=== PATIENT | female | born 1985 | race Caucasian/White ===

== ENCOUNTER 2017-04-06 11:32 | Emergency (ER) | payer OTHER ==
[~2017-04-06] VITALS: Ht 154.9 cm; Wt 70.5 kg
[2017-04-06] MEDS ORDERED: NORCO, ANEXSIA 5/325MG TABLET (HYDROcodone/ACETAMINOPHEN) PO ONE (12:30)
--- NOTE | 2017-04-06 12:47 | REP ---
Clinical: Trauma. Technique: Frontal view of the chest with multiple views of the right hemithorax. Findings: Frontal view of the chest demonstrates no acute cardiopulmonary process. Multiple views of the right hemithorax demonstrates no obvious acute rib fracture or pathology. Impression: Normal right rib series Signed by Itz Goldstein MD 04/06/2017 12:39 P
[2017-04-06 13:08] VITALS: BP 139/79
== END 2017-04-06 13:26 | disposition home or self-care (01) ==
LOC: M ED 11:32
DX: S00.91XA Abrasion of unspecified part of head, initial encounter (principal); S20.211A Contusion of right front wall of thorax, initial encounter; Y04.8XXA Assault by other bodily force, initial encounter; Y92.410 Unspecified street and highway as the place of occurrence of the external cause; Y93.89 Activity, other specified; Y99.8 Other external cause status

== ENCOUNTER → 2019-06-12 | Outpatient (REF) | payer OTHER, MEDICAID ==
[2019-06-12 18:50] LABS: HCG, SERUM QUALITATIVE POSITIVE (NEGATIVE)
[2019-06-12 19:26] LABS: HCG, SERUM QUANTITATIVE 19815 MIU/ML
== END ==
LOC: M LAB REF 11:14
PROVIDERS: ATTEND Nurse Practitioner Family
DX: Z34.82 Encounter for supervision of other normal pregnancy, second trimester (principal)

== ENCOUNTER → 2019-08-10 | Outpatient (CLI) | payer OTHER ==
[2019-08-10 13:59] LABS: BASO % 0.5 % (0.0-1.0); EOS # 0.2 10^3/uL (0.0-0.5); EOS % 2.4 % (0.0-3.0); HEMATOCRIT 38.6 % (36.0-47.0); HEMOGLOBIN 12.7 g/dl (12.0-15.5); LYMPH # 1.5 10^3/uL (1.5-5.0); MEAN CORPUSCULAR HEMOGLOBIN 31.1 pg (27.0-33.0); MEAN CORPUSCULAR HGB CONC 32.9 g/dl (32.0-36.5); MEAN CORPUSCULAR VOLUME 94.4 fl (80.0-96.0); MONO # 0.8 10^3/uL (0.0-0.8); MONO % 9.9 % (0.0-5.0); NEUTROPHILS # 5.4 10^3/uL (1.5-8.5); NEUTROPHILS % 67.6 % (36.0-66.0); PLATELET COUNT, AUTOMATED 168 10^3/uL (150-450); RED BLOOD COUNT 4.09 10^6/uL (4.00-5.40)
[2019-08-10 14:49] LABS: HIV 1&2 SCREEN CENTAUR NEGATIVE (NEGATIVE); RUBELLA IgG QUALITATIVE IMMUNE (IMMUNE)
== END ==
LOC: M SMT 11:15
PROVIDERS: ATTEND Advanced Practice Midwife
DX: Z34.81 Encounter for supervision of other normal pregnancy, first trimester (principal); Z3A.10 10 weeks gestation of pregnancy

== ENCOUNTER → 2019-09-07 | Outpatient (CLI) | payer OTHER ==
--- NOTE | 2019-09-07 13:28 | REP ---
Clinical: Anatomical evaluation. Comparison: None . Findings: Examination demonstrates a single live intrauterine in cephalic presentation. motion is identified by technologist. Placenta is noted posterior and grade zero without evidence for placenta previa or abruption. Amniotic fluid volume is normal. Cervix measures 3.4 cm in length and appears closed. No evidence for nuchal cord. Gestational age by current measurements 18 weeks 3 days with MARIO 02/05/2020 . FHR equals 144 beats per minute. BPD 4.1 cm 18 weeks 3 days HC 15.5 cm 18 weeks 3 days AC 13.0 cm 18 weeks 4 days FL 2.7 cm 18 weeks 1 day HL 2.7 cm 18 weeks 3 days HC/AC ratio 1.20 Estimated weight 235 grams ( 44th percentile). Anatomical assessment demonstrates normal structures including cranium, choroid plexus, cavum, cerebellum/posterior fossa, facial features, lungs, diaphragm, stomach, cord insertion/three-vessel cord, kidneys/bladder, spine, and extremities. Impression: Single live intrauterine in cephalic presentation demonstrating appropriate estimated weight to growth. Limited evaluation of the heart and ventricular outflow tracts noted. Remainder of the anatomical assessment is complete and normal. Electronically Signed by Itz Goldstein MD 09/07/2019 01:19 P
== END ==
LOC: M RAD 11:15
PROVIDERS: ATTEND Advanced Practice Midwife
DX: Z34.82 Encounter for supervision of other normal pregnancy, second trimester (principal); Z36.89 Encounter for other specified antenatal screening; Z3A.18 18 weeks gestation of pregnancy

== ENCOUNTER → 2019-09-13 | Outpatient (REF) | payer OTHER ==
[2019-09-13 15:46] LABS: CHLAMYDIA DNA AMPLIFICATION NEGATIVE (NEGATIVE); GC DNA AMPLIFICATION NEGATIVE (NEGATIVE)
== END ==
LOC: M SFHCWAGY 13:38
PROVIDERS: ATTEND Advanced Practice Midwife
DX: Z3A.19 19 weeks gestation of pregnancy (principal)

== ENCOUNTER → 2019-09-26 | Outpatient (CLI) | payer OTHER | LOC: M RAD 16:44 | PROVIDERS: ATTEND Advanced Practice Midwife | DX: Z3A.19 19 weeks gestation of pregnancy (principal) ==

== ENCOUNTER → 2019-10-12 | Outpatient (CLI) | payer OTHER | LOC: M RAD 11:00 | PROVIDERS: ATTEND Advanced Practice Midwife | DX: Z36.3 Encounter for antenatal screening for malformations (principal); Z3A.19 19 weeks gestation of pregnancy ==

== ENCOUNTER → 2019-11-15 | Outpatient (REF) | payer OTHER ==
[2019-11-15 12:47] LABS: HEMATOCRIT 35.3 % (36.0-47.0); HEMOGLOBIN 11.6 g/dl (12.0-15.5); MEAN CORPUSCULAR HGB CONC 32.9 g/dl (32.0-36.5); MEAN CORPUSCULAR VOLUME 97.2 fl (80.0-96.0); PLATELET COUNT, AUTOMATED 147 10^3/uL (150-450); RED BLOOD COUNT 3.63 10^6/uL (4.00-5.40); WHITE BLOOD COUNT 9.9 10^3/uL (4.0-10.0)
== END ==
LOC: M PLALAB 10:25
PROVIDERS: ATTEND Advanced Practice Midwife
DX: Z34.92 Encounter for supervision of normal pregnancy, unspecified, second trimester (principal)

== ENCOUNTER 2019-12-23 18:51 | Outpatient (CLI) | payer OTHER ==
[~2019-12-23] VITALS: Ht 154.9 cm; Wt 66.4 kg
[2019-12-23 19:07] VITALS: BP 111/77
[2019-12-23] MEDS ORDERED: PRENTAB9 PO (19:49)
--- NOTE | 2019-12-23 20:45 | IPNPDOC ---
Text Note Date of Service The patient was seen on 12/23/19. NOTE Subjective: Patient is a 34-year-old female who is a at 33.5 weeks gestation with an MARIO of 02/05/20 based off of her first trimester ultrasound. She initiated care in her first trimester with [facility]. Her has been complicated by a history of delivery at 36 weeks. She presents with vague symptoms of some occasional abdominal pains that are intermittent in no exact spot but reports it happens on random spots on her abdomen. She also reports upper mid back pain. She denies any contraction, leaking of fluid, or vaginal bleeding. She reports active movement. She denies any dysuria or frequency. She states that she knows she is not in labor. history: 01/2010 36 weeks of a living male weighting 4 lbs 11 oz with PPROM. Medical history: no current problems Surgical history: cyst removed from wrist Family history: noncontributory Social: Patient reports she is a former smoker. She denies any use of drugs or alcohol in her . She denies any history of STDs. Objective: VS and labs: see below. FHR 150, moderate variability, positive accelerations, no decelerations. Contractions: occasional. A+O x3. Respiratory rate is regular with no use of accessory muscles. Abdomen: gravid, soft and non- tender to palpation. Negative CVA tenderness. Perineum: no discharge noticed at introitus. SVE: FT with internal os that is closed and thick, anterior and scant show with exam. [place] show noted on glove after exam. Assessment: IUP at 33 weeks gestation; Category I FHR tracing, history of delivery, occasional abdominal and upper mid back pain, AMA Plan: UA and c&s culture obtained. Patient discharged to home with labor precautions. Instructed to call with any changes. Reviewed access to care, kick counts, labor signs, and danger signs to report. VS,Fishbone, I+O VS, Fishbone, I+O Vital Signs Date Time Temp Pulse Resp B/P (MAP) Pulse Ox O2 Delivery O2 Flow Rate FiO2 12/23/19 19:07 97.6 76 18 111/77 (88) 96 Item Value Date Time Urine Color YELLOW 12/23/192036 Urine Appearance CLOUDY H 12/23/192036 Urine pH 5.0 UNITS 12/23/192036 Urine Specific [place] 1.019 12/23/192036 Urine Protein NEGATIVE mg/dL 12/23/192036 Urine Glucose (Auto)(UA) NEGATIVE mg/dL 12/23/192036 Urine Ketones (Auto) NEGATIVE mg/dL 12/23/192036 Urine Blood 3+ H 12/23/192036 Urine Nitrite NEGATIVE 12/23/192036 Urine Bilirubin NEGATIVE 12/23/192036 Urine Urobilinogen 0.2 mg/dL 12/23/192036 Urine Leukocyte Esterase (Auto) 1+ H 12/23/192036 Urine WBC (Auto) 24 /HPF H 12/23/192036 Urine RBC (Auto) TNTC /HPF H 12/23/192036 Urine Hyaline Casts (Auto) 0 /LPF 12/23/192036 Urine Bacteria (Auto) 1+ H 12/23/192036 Urine Squamous Epithelial Cells 18 /HPF 12/23/192036 Urine Mucus (Auto) SMALL 12/23/192036 LETTY YIP CNM Dec 23, 2019 20:45
[2019-12-23 20:50] LABS: APPEARANCE, URINE CLOUDY (CLEAR); BACTERIA, URINE AUTO 1+ (NEGATIVE); BILIRUBIN, URINE AUTO NEGATIVE (NEGATIVE); BLOOD, URINE BLOOD 3+ (NEGATIVE); COLOR, URINE YELLOW (YELLOW); GLUCOSE, URINE (UA) AUTO NEGATIVE (NEGATIVE); KETONE, URINE AUTO NEGATIVE (NEGATIVE); LEUKOCYTE ESTERASE, URINE AUTO 1+ (NEGATIVE); MUCUS, URINE SMALL (NEGATIVE); NITRITE, URINE AUTO NEGATIVE (NEGATIVE); PROTEIN, URINE AUTO NEGATIVE (NEGATIVE); RBC, URINE AUTO TNTC /HPF (0-3); SPECIFIC GRAVITY URINE AUTO 1.019 (1.002-1.035); SQUAMOUS EPITHELIAL CELL UR AU 18 /HPF (0-6); UROBILINOGEN, URINE AUTO 0.2 mg/dL (0.0-2.0); WBC, URINE AUTO 24 /HPF (0-3)
[2019-12-23 21:14] VITALS: BP 105/58
== END 2019-12-23 21:30 | disposition home or self-care (01) ==
LOC: M LDO 18:51
PROVIDERS: ATTEND Advanced Practice Midwife
DX: O26.893 Other specified pregnancy related conditions, third trimester (principal); M54.5 Low back pain; Z3A.33 33 weeks gestation of pregnancy

== ENCOUNTER → 2020-01-09 | Outpatient (REF) | payer OTHER ==
[~2020-01-09] MED LIST: PRENTAB9 PO
== END ==
LOC: M SFHCWAGY 13:26
PROVIDERS: ATTEND Advanced Practice Midwife
DX: O09.219 Supervision of pregnancy with history of pre-term labor, unspecified trimester (principal); Z3A.00 Weeks of gestation of pregnancy not specified

== ENCOUNTER 2020-02-02 13:38 | Inpatient (IN) | payer OTHER ==
[2020-02-02] VITALS (20 sets, daily range): BP systolic 101–138; BP diastolic 55–84
[~2020-02-02] VITALS: Ht 180.3 cm; Wt 71.4 kg
[2020-02-02] MEDS ORDERED: OXYTOCIN DRIP 30 UNITS in IV 1 EA IV SCH (14:30)
[2020-02-02] MEDS: LR 1,000 ML IV SCH ×2 (14:51→17:13)
--- NOTE | 2020-02-02 14:53 | HPEPDOC ---
Obstetrical History & Physical General Date of Admission Feb 02, 2020 at 13:38 History of Present Illness 34-year-old 2, para 1 presents for induction of labor secondary to advan shaun maternal age. EDC is 02/05/2020 by first trimester ultrasound. She is had an uncomplicated course. She initiated care first trimesters been appropriate throughout. Chief Complaint: Induction of labor Information Provided By: Patient Age: 34 : 2 Pre-term: 1 Livin Care Care: Good Care Dating Final EDC: February 05, 2020 Final EDC by: 1st trimester (US) 1st Trimester Date: Jul 13, 2019 Past Medical History Past Obstetrical History : Past Obstetrical History: Multigravida Type of Delivery: Spontaneous Vaginal Del. Sex of : Male Past Medical History Surgical History: Denies/None Social History Marital Status: Single Psychosocial History: No pertinent psych hx * Smoker: former Smoker Alcohol: Denies Allergies Coded Allergies: No Known Allergies (Verified , 04/06/17) Medications Scheduled No.137/Iron/Folic Acd ( Vitamin Tablet) 1 Each Tablet, 1 TAB PO DAILY Physical Examination Physical Examination GENERAL: Alert and oriented times three. BREAST: . ABDOMEN: Gravid and non-tender to touch. FETUS: Is vertex (VTX) by sterile vaginal examination (SVE), fetus is vertex (VTX) by Jan. HEART RATE: Regular rate and rhythm. LUNGS: Clear to auscultation (CTA). Laboratory Data 24H LABS Laboratory Tests 2 02/02/20 13:46: Serology Scanned Report Hepatitis B Testing Pertinent Laboratoy Data Blood Type: O+ RBC Antibody Screen: Negative HIV: Negative Hepatitis B: Negative Hepatitis C: Negative Rapid Plasma Reagin: Nonreactive Rubella: Immune Group B Streptococcus: Negative Vaginal Examination Dilation: 2cm Effacement: 80% Station: -3 Cervical Consistency: Soft Cervical Position: Middle Presentation: Cephalic presentation Assessment Variability: Moderate Accelerations: Positive Tocometer Contractions: No Assessment/Plan Assessment 34-year-old 2, para 1 at 39 weeks 1 days estimated gestational age , here for induction of labor secondary to advanced maternal age. Reassuring status Plan Admit and orient. Mica Patcher and consent. Diet: Regular. Group B Streptococcus (GBS) negative. Labs and intravenous (IV) per unit protocol. Counseled on Pitocin and induction of labor (IOL). Anticipate normal spontaneous delivery (). C-S as appropriate. Labor and Delivery Counseling Patient's been thoroughly counseled regards, induction labor. Discussed medications procedures performed labor and delivery. She is been verbally consented for emergency surgery, blood products anesthesia and delivery, which is been answered. She desires to proceed with induction of labor. We'll initiate her induction labor with LENI Tesfaye MD. Feb 02, 2020 14:53
[2020-02-02 15:09] LABS: HEMOGLOBIN 11.7 g/dl (12.0-15.5); MEAN CORPUSCULAR HEMOGLOBIN 31.6 pg (27.0-33.0); MEAN CORPUSCULAR HGB CONC 33.4 g/dl (32.0-36.5); MEAN CORPUSCULAR VOLUME 94.6 fl (80.0-96.0); PLATELET COUNT, AUTOMATED 157 10^3/uL (150-450); WHITE BLOOD COUNT 9.3 10^3/uL (4.0-10.0)
[2020-02-02] MEDS ORDERED: FENTANYL 2MCG/ML ROPIVACAINE 0.2% IN 0.9% NACL 100ML IVBAG As Ordered ONE (21:31)
[2020-02-02] MEDS ORDERED: ePHEDrine SULFATE 25 MG/5 ML(5MG/ML) SYRINGE IV PRN (21:52)
[2020-02-02] MEDS ORDERED: EPIDURAL COMMENT XX SCH (21:52)
[2020-02-02] MEDS ORDERED: LACTATED RINGER'S 1000 ML IV PRN (21:52)
[2020-02-02] MEDS ORDERED: EPIDURAL/PCA KEYS XX PRN (21:52)
[2020-02-02] MEDS ORDERED: NALOXONE INJ 0.4MG/1ML VIAL (J2310 PER 1MG) IV PRN (21:52)
[2020-02-02] MEDS ORDERED: FENTANYL/ROPIVACAINE/NACL BAG 100 ML EPIDURAL SCH (21:52)
[2020-02-02] MEDS ORDERED: diphenhydrAMINE 50MG/ML VIAL (J1200) IV PRN (21:52)
[2020-02-02] MEDS ORDERED: REFRIGERATOR IV KEYS XX PRN (21:52)
[2020-02-02] MEDS ORDERED: ONDANSETRON 4MG/2ML VIAL IV PRN (21:52)
[2020-02-03] VITALS (8 sets, daily range): BP systolic 115–141; BP diastolic 58–84
[2020-02-03] MEDS ORDERED: ACETAMINOPHEN 500 MG TAB As Ordered ONE (01:39)
[2020-02-03] MEDS ORDERED: UNASYN 3 GM VIAL As Ordered ONE (01:39)
[2020-02-03] MEDS ORDERED: MORPHINE PRES-FREE INJ 10 MG/10 ML VIAL (J2274) As Ordered ONE (01:45)
[2020-02-03] MEDS ORDERED: LIDOCAINE 2% W/EPIN INJ 20ML **PRES FREE As Ordered ONE (01:46)
[2020-02-03] MEDS ORDERED: BICITRA 30ML SOLN UDC As Ordered ONE (01:47)
[2020-02-03] MEDS ORDERED: OXYTOCIN INJ 10 UNITS/ML VIAL (J2590) As Ordered ONE (01:49)
--- NOTE | 2020-02-03 01:51 | IPNPDOC ---
Obstetrical Progress Note Date of Service February 03, 2020 Subjective 34-year-old 2, para 1 was undergoing induction of labor at 39 weeks for advanced maternal age. Has been complete since midnight has been pushing now approximate 2 hours with no descent. heart rate tracing is a category 2 with tachycardia many of minimal variability and repetitive variable decelerations. She is now formally diagnosed with chorioamnionitis with ta chycardia, maternal temperature, decision made to proceed with section. Discussed this with patient. All questions been answered. Will plan to proceed with section with indication of arrest of descent, persistent category 2 tracing maternal exhaustion Objective Vital Signs Date Time Temp Pulse Resp B/P (MAP) Pulse Ox O2 Delivery O2 Flow Rate FiO2 02/02/20 23:07 81 109/63 (78) 02/02/20 22:39 98.4 02/02/20 18:48 18 02/02/20 14:09 97 Assessment Heart Rate Tracing: Category II Assessment and Plan Age: 34 : 2 Livin Anticipate: Section Additional Comments Plan to proceed with primary section for persistent category 2 heart tracing, arrest of descent and maternal exhaustion LENI MICHELLE MD. February 03, 2020 01:51
[2020-02-03] MEDS ORDERED: AMPICILLIN SOD/SULBACTAM SOD 3 GM in D5W MINI-BAG PLUS 100 ML IV ONE (02:00)
[2020-02-03] MEDS ORDERED: BICITRA 30ML SOLN UDC PO ONE (02:00)
[2020-02-03] MEDS ORDERED: ACETAMINOPHEN 325 MG/10.15 ML UDC PO ONE (02:00)
[2020-02-03] MEDS ORDERED: dexameTHASONE 4 MG/ML 1ML VIAL (J1100 PER 1MG) As Ordered ONE (02:18)
[2020-02-03] MEDS ORDERED: ONDANSETRON 4MG/2ML VIAL As Ordered ONE (02:18)
[2020-02-03] MEDS ORDERED: NALBUPHINE HCL 10 MG/ML AMP (J2300) IV PRN (02:21)
[2020-02-03] MEDS ORDERED: ONDANSETRON 4MG/2ML VIAL IV PRN ×3 (02:21→03:30)
[2020-02-03] MEDS ORDERED: diphenhydrAMINE 50MG/ML VIAL (J1200) IV PRN (02:21)
[2020-02-03] MEDS ORDERED: METOCLOPRAMIDE INJ 10MG/2ML VIAL (J2765 PER 1) IV PRN (02:21)
[2020-02-03] MEDS ORDERED: NALOXONE INJ 0.4MG/1ML VIAL (J2310 PER 1MG) IV PRN ×2 (02:21)
[2020-02-03] MEDS ORDERED: MIDAZOLAM INJ 2MG/2ML VIAL (J2250 PER 1MG) As Ordered ONE (02:23)
[2020-02-03] MEDS ORDERED: propofoL 200 MG/20 ML VIAL As Ordered ONE (02:32)
[2020-02-03 02:47] LABS: CORD GAS ABE V -6.2; CORD GAS HCO3 V 21.7 MEQ/L; CORD GAS O2 SAT V 42.8 %; CORD GAS PCO2 V 51.5 mmHg; CORD GAS PH V 7.243 UNITS; CORD GAS PO2 V 21.4 mmHg; CORD GAS SBC V 18.1 MEQ/L; CORD GAS TCO2 V 23.3 MEQ/L
[2020-02-03 02:49] LABS: CORD GAS HCO3 A 21.9 MEQ/L; CORD GAS O2 SAT A 51.2 %; CORD GAS PH A 7.203 UNITS; CORD GAS PO2 A 26.3 mmHg; CORD GAS SBC A 17.7 MEQ/L; CORD GAS TCO2 A 23.7 MEQ/L
[2020-02-03] MEDS ORDERED: OXYTOCIN DRIP 30 UNITS in IV 1 EA IV SCH (03:09)
[2020-02-03] MEDS ORDERED: LR 1,000 ML IV SCH (03:09)
[2020-02-03] MEDS ORDERED: PERCOCET 5MG/325MG TAB PO PRN ×2 (03:15)
[2020-02-03] MEDS ORDERED: RHOGAM 300 MCG (1500 IU) INJ (J2790) IM SCH (03:15)
[2020-02-03] MEDS ORDERED: MOM 30ML SUSPENSION UDC PO PRN (03:15)
[2020-02-03] MEDS ORDERED: MEASLES,MUMPS,RUBELLA VACCINE INJ (MMR-II) (90707) SC SCH (03:15)
--- NOTE | 2020-02-03 03:18 | ROOPDOC ---
[facility] Report Of Operation Report of Operation DATE OF PROCEDURE: 02/03/20 SURGEON: Dian Villa M.D. BACON SKINNER: Dr. Pavel Gonzales ANESTHESIA: Epidural PREOPERATIVE DIAGNOSIS: 1. Persistent category 2 tracing 2. Arrest of descent 3. Chorioamnionitis POSTOPERATIVE DIAGNOSIS: 1. Persistent category 2 tracing 2. Arrest of descent 3. Chorioamnionitis ESTIMATED BLOOD LOSS: 600ml URINE OUTPUT: 50 mL INTRAVENOUS FLUIDS:, 1200 mL PREOPERATIVE ANTIBIOTICS: 3 g of Unasyn OPERATIVE FINDINGS: Liveborn female infant, Apgars 7 and 9. Weight was 5 lbs. 6 oz. 40. SPECIMENS: Placenta. Cord gases DESCRIPTION OF PROCEDURE: After informed consent was obtained and written consent was reviewed. The patient was brought to the operating room. She was then placed in the supine position with a left lateral tilt. Waldrop catheter was previously placed. Patient was then prepped and draped in the normal sterile fashion. A timeout operating room was performed identifying the patient, procedure be performed as well as drug allergies. Anesthesia was tested and deemed to be adequate. Pfannenstiel skin incision was made and this was carried down to the underlying rectus fascia. The fascia was then scored and this incision was extended bilaterally. The fascia was then dissected off the underlying rectus muscle superiorly and inferiorly. The rectus muscles were then in the midline. The peritoneum is then entered. Vesicouterine peritoneum was then tented and excised and a bladder flap was created. Mobius retractor was then placed. Next, a curvilinear incision was then made in the lower uterine segment. Amniotomy was performed, productive, clear fluid. The head was brought to the level of the incision atraumatically and delivered along the shoulders and corpus. The cord was clamped 2. The infant was brought over to the warmer with a good cry. Placenta was drained and delivered grossly intact. The uterus was cleared of all clots and debris and the uterine incision was then closed in 2 layers using 0 Vicryl, first in a running locking fashion followed by second layer for imbrication. Several [id number] stitches were placed for hemostasis.The abdomen suctioned. Surgical sites reinspected and noted be hemostatic. The retractor was then removed. The anterior peritoneum was then reapproximated with 3-0 Vicryl. The rectus muscles were reapproximated 3-0 Vicryl. The fascia was then closed using 0 Vicryl in a running nonlocking fashion. The subcutaneous tissues was then irrigated and suctioned. Subcutaneous tissue was reapproximated using 3-0 Vicryl. Several subdermal stitch is placed using 3-0 Vicryl and the skin was closed with 4-0 Monocryl. This incision was then cleaned and dried and was dressed. The patient was then taken to recovery in stable condition. All counts were correct. My mechanic assistant. played in an essential roll during the opera tion. They assisted with tissue identification retraction, delivery of the , as well as wound closure. DIAN VILLA MD. February 03, 2020 03:18
[2020-02-03] MEDS ORDERED: fentaNYL 100 MCG/2 ML INJECTION (J3010) IV PRN (03:30)
[2020-02-03] MEDS ORDERED: KETOROLAC 30 MG/ML 1ML VIAL IV PRN (03:30)
[2020-02-03] MEDS ORDERED: OXYTOCIN 30 UNITS IN 0.9% NaCl 500ML IV BAG (J2590) As Ordered ONE (03:47)
[2020-02-03] MEDS ORDERED: KETOROLAC 30 MG/ML 1ML VIAL As Ordered ONE (03:47)
[2020-02-03] MEDS ORDERED: ACETAMINOPHEN 500 MG TAB PO ONE (05:30)
[2020-02-03] MEDS: PRENATAL VITAMINS CHEWABLE TABLET PO SCH (07:47)
[2020-02-03] MEDS: DOCUSATE SODIUM 100 MG CAP PO SCH ×3 (07:47→20:59)
[2020-02-03] MEDS: AMPICILLIN SOD/SULBACTAM SOD 3 GM in D5W MINI-BAG PLUS 100 ML IV SCH ×3 (07:47→20:47)
[2020-02-03] MEDS ORDERED: IBUP80TA PO (08:54)
[2020-02-03] MEDS ORDERED: PERCOCET PO (08:54)
[2020-02-03] MEDS: KETOROLAC 30 MG/ML 1ML VIAL IV SCH ×3 (10:08→22:13)
[2020-02-04] VITALS (14 sets, daily range): BP systolic 104–155; BP diastolic 63–86
[2020-02-04] MEDS: AMPICILLIN SOD/SULBACTAM SOD 3 GM in D5W MINI-BAG PLUS 100 ML IV SCH ×4 (03:00→19:45)
[2020-02-04] MEDS ORDERED: IBUPROFEN 800 MG TAB PO SCH (06:00)
[2020-02-04] MEDS: IBUPROFEN 100 MG/5 ML SUSP UDC DYE FREE PO SCH ×3 (06:16→21:34)
--- NOTE | 2020-02-04 07:12 | IPNPDOC ---
Text Note Date of Service The patient was seen on 02/04/20. NOTE PO #1 Reports adequate pain management. Jo placed last night due to inability to void. Tolerating food, fluids. Passing flatus. VSS, afebrile and normotensive Fundus firm Dressing intact with scant old drainage. Lochia rubra scant without odor PO #1 Remove jo this am. Attempt to void starting 2 hrs then hourly. Consider D/C in am VS,Fishbone, I+O VS, Fishbone, I+O Vital Signs Date Time Temp Pulse Resp B/P (MAP) Pulse Ox O2 Delivery O2 Flow Rate FiO2 02/04/20 06:00 98.1 72 18 134/71 (92) 98 Room Air I&O- Last 24 Hours up to 6 AM 02/04/20 06:00 Intake Total 1470 ml Output Total 2750 ml Balance -1280 ml Galilea Beard CNM February 04, 2020 07:12
[2020-02-04 07:16] LABS: HEMATOCRIT 22.8 % (36.0-47.0); MEAN CORPUSCULAR HEMOGLOBIN 31.9 pg (27.0-33.0); MEAN CORPUSCULAR HGB CONC 33.3 g/dl (32.0-36.5); MEAN CORPUSCULAR VOLUME 95.8 fl (80.0-96.0); PLATELET COUNT, AUTOMATED 106 10^3/uL (150-450); RED BLOOD COUNT 2.38 10^6/uL (4.00-5.40); WHITE BLOOD COUNT 10.7 10^3/uL (4.0-10.0)
[2020-02-04 07:18] LABS: HEMOGLOBIN 7.6 g/dl (12.0-15.5)
[2020-02-04] MEDS: DOCUSATE SODIUM 100 MG CAP PO SCH ×2 (07:45→21:39)
[2020-02-04] MEDS: PRENATAL VITAMINS CHEWABLE TABLET PO SCH (07:45)
[2020-02-04] MEDS ORDERED: PILL CUTTER 1 EACH XX PRN (16:30)
[2020-02-05] MEDS: AMPICILLIN SOD/SULBACTAM SOD 3 GM in D5W MINI-BAG PLUS 100 ML IV SCH ×2 (01:28→08:00)
[2020-02-05 02:00] VITALS: BP 115/69
[2020-02-05] MEDS: IBUPROFEN 100 MG/5 ML SUSP UDC DYE FREE PO SCH ×3 (06:24→21:41)
[2020-02-05 06:37] VITALS: BP 121/82
[2020-02-05 06:48] LABS: HEMATOCRIT 29.5 % (36.0-47.0); MEAN CORPUSCULAR HEMOGLOBIN 29.6 pg (27.0-33.0); MEAN CORPUSCULAR HGB CONC 32.5 g/dl (32.0-36.5); PLATELET COUNT, AUTOMATED 122 10^3/uL (150-450); RED BLOOD COUNT 3.24 10^6/uL (4.00-5.40); WHITE BLOOD COUNT 10.6 10^3/uL (4.0-10.0)
[2020-02-05 06:54] LABS: HEMOGLOBIN 9.6 g/dl (12.0-15.5)
[2020-02-05] MEDS: PRENATAL VITAMINS CHEWABLE TABLET PO SCH (09:00)
[2020-02-05] MEDS: DOCUSATE SODIUM 100 MG CAP PO SCH ×2 (09:00→21:00)
[2020-02-05 18:10] VITALS: BP 138/73
[2020-02-06 05:55] VITALS: BP 134/88
[2020-02-06] MEDS: IBUPROFEN 100 MG/5 ML SUSP UDC DYE FREE PO SCH (05:57)
[2020-02-06] MEDS: DOCUSATE SODIUM 100 MG CAP PO SCH (08:14)
[2020-02-06] MEDS: PRENATAL VITAMINS CHEWABLE TABLET PO SCH (08:14)
== END 2020-02-06 11:00 | disposition home or self-care (01) | DRG 540 ==
LOC: M LDI 13:38 → M OBS 02-03 04:41
PROVIDERS: ADMIT Obstetrics & Gynecology; ATTEND Obstetrics & Gynecology
PROC: 10D00Z1 Extraction of Products of Conception, Low, Open Approach (ICD-10-PCS; principal; 2020-02-03 02:00)
DX: O32.4XX0 Maternal care for high head at term, not applicable or unspecified (principal); O41.1230 Chorioamnionitis, third trimester, not applicable or unspecified; Z37.0 Single live birth; Z3A.39 39 weeks gestation of pregnancy; O09.523 Supervision of elderly multigravida, third trimester

== ENCOUNTER 2021-07-10 22:31 | Emergency (ER) | payer OTHER ==
[~2021-07-10] VITALS: Ht 154.9 cm; Wt 56.4 kg
[2021-07-10 22:31] VITALS: BP 119/72
[~2021-07-10 22:31] MED LIST changes: +IBUP80TA PO; +PERCOCET PO
== END 2021-07-11 00:27 | disposition left against medical advice (07) ==
LOC: M ED 22:31
DX: Z53.21 Procedure and treatment not carried out due to patient leaving prior to being seen by health care provider (principal)

== ENCOUNTER → 2022-07-28 | Outpatient (REF) | payer OTHER ==
[2022-07-28 19:22] LABS: ALBUMIN 3.5 GM/DL (3.2-5.2); ALT/SGPT 26 U/L (12-78); AMYLASE 43 U/L (25-115); BILIRUBIN,TOTAL 0.2 MG/DL (0.2-1.0); BLOOD UREA NITROGEN 20 MG/DL (7-18); CALCIUM LEVEL 8.5 MG/DL (8.5-10.1); CARBON DIOXIDE LEVEL 27 MEQ/L (21-32); CHLORIDE LEVEL 104 MEQ/L (98-107); CREATININE FOR GFR 1.13 MG/DL (0.55-1.30); GLOMERULAR FILTRATION RATE 57.7 (>60); GLUCOSE, FASTING 93 MG/DL (70-100); LIPASE 116 U/L (73-393); POTASSIUM SERUM 4.2 MEQ/L (3.5-5.1); SODIUM LEVEL 136 MEQ/L (136-145); TOTAL PROTEIN 6.9 GM/DL (6.4-8.2)
[2022-07-28 20:45] LABS: HEPATITIS C VIRUS ABY INDEX < 0.0 INDEX (<0.8)
[2022-07-28 20:46] LABS: HIV 1&2 SCREEN CENTAUR NEGATIVE (NEGATIVE)
[2022-07-28 21:08] LABS: HCG, SERUM QUALITATIVE NEGATIVE (NEGATIVE)
== END ==
LOC: M LAB REF 17:03
PROVIDERS: ATTEND Nurse Practitioner Family
DX: R10.11 Right upper quadrant pain (principal); Z11.3 Encounter for screening for infections with a predominantly sexual mode of transmission

== ENCOUNTER 2022-10-06 15:46 | Emergency (ER) | payer OTHER ==
[~2022-10-06] VITALS: Ht 154.9 cm; Wt 56.8 kg
[2022-10-06] MEDS ORDERED: KETOROLAC 30 MG/ML 1ML VIAL IV ONE (18:10)
[2022-10-06] MEDS ORDERED: NS 1,000 ML IV ONE (18:10)
[2022-10-06 18:49] LABS: BASO % 0.5 % (0.0-1.0); EOS % 0.5 % (0.0-3.0); HEMATOCRIT 37.9 % (36.0-47.0); LYMPH # 0.6 10^3/uL (1.5-5.0); LYMPH % 13.8 % (24.0-44.0); MEAN CORPUSCULAR HEMOGLOBIN 31.7 pg (27.0-33.0); MEAN CORPUSCULAR HGB CONC 34.3 g/dl (32.0-36.5); MEAN CORPUSCULAR VOLUME 92.4 fl (80.0-96.0); MONO # 0.9 10^3/uL (0.0-0.8); MONO % 21.1 % (2.0-8.0); NEUTROPHILS # 2.6 10^3/uL (1.5-8.5); NEUTROPHILS % 63.9 % (36.0-66.0); PLATELET COUNT, AUTOMATED 126 10^3/uL (150-450); WHITE BLOOD COUNT 4.1 10^3/uL (4.0-10.0)
[2022-10-06 19:08] LABS: LIPASE 28 U/L (12-53)
[2022-10-06 19:10] LABS: ALBUMIN 3.7 G/DL (3.2-5.2); ALKALINE PHOSPHATASE 45 U/L (46-116); ALT/SGPT 20 U/L (7.0-40); AST/SGOT 18 U/L (<34); BILIRUBIN,DIRECT 0.1 MG/DL (<0.4); BILIRUBIN,TOTAL 0.4 MG/DL (0.3-1.2); BLOOD UREA NITROGEN 11 MG/DL (9-23); CALCIUM LEVEL 8.9 MG/DL (8.5-10.1); CARBON DIOXIDE LEVEL 20 MMOL/L (20-31); CHLORIDE LEVEL 102 MMOL/L (98-107); CREATININE FOR GFR 0.81 MG/DL (0.55-1.30); GLOMERULAR FILTRATION RATE > 60.0 (>60); GLUCOSE, FASTING 90 MG/DL (60-100); POTASSIUM SERUM 3.8 MMOL/L (3.5-5.1); SODIUM LEVEL 137 MMOL/L (136-145); TOTAL PROTEIN 6.8 G/DL (5.7-8.2)
[2022-10-06 19:13] LABS: RSV AMPLIFICATION NEGATIVE (NEGATIVE)
[2022-10-06 19:48] VITALS: BP 113/74
[2022-10-06] MEDS ORDERED: ONDA4TAB6 PO (19:54)
== END 2022-10-06 20:13 | disposition home or self-care (01) ==
LOC: M ED 17:51
DX: U07.1 COVID-19 (principal); F17.200 Nicotine dependence, unspecified, uncomplicated

== ENCOUNTER 2023-05-26 19:06 | Emergency (ER) | payer OTHER ==
[~2023-05-26] VITALS: Ht 154.9 cm; Wt 59.2 kg
[~2023-05-26 19:06] MED LIST changes: +ONDA4TAB6 PO
[2023-05-26 20:13] LABS: BASO # 0.1 10^3/uL (0.0-0.2); BASO % 0.7 % (0.0-1.0); EOS # 0.1 10^3/uL (0.0-0.5); EOS % 0.7 % (0.0-3.0); HEMATOCRIT 40.4 % (36.0-47.0); HEMOGLOBIN 13.8 g/dl (12.0-15.5); LYMPH # 2.3 10^3/uL (1.5-5.0); LYMPH % 23.6 % (24.0-44.0); MEAN CORPUSCULAR HEMOGLOBIN 31.8 pg (27.0-33.0); MEAN CORPUSCULAR HGB CONC 34.2 g/dl (32.0-36.5); MEAN CORPUSCULAR VOLUME 93.1 fl (80.0-96.0); MONO % 10.6 % (2.0-8.0); NEUTROPHILS # 6.3 10^3/uL (1.5-8.5); PLATELET COUNT, AUTOMATED 194 10^3/uL (150-450); RED BLOOD COUNT 4.34 10^6/uL (4.00-5.40); WHITE BLOOD COUNT 9.8 10^3/uL (4.0-10.0)
[2023-05-26 20:38] LABS: ALBUMIN 3.9 G/DL (3.2-5.2); BILIRUBIN,DIRECT 0.3 MG/DL (<0.4); BILIRUBIN,TOTAL 0.7 MG/DL (0.3-1.2); TOTAL PROTEIN 7.1 G/DL (5.7-8.2)
[2023-05-27 00:01] VITALS: BP 116/66; TEMP 98.2; O2SAT 99
== END 2023-05-27 00:13 | disposition home or self-care (01) ==
LOC: EDBD 19:06 → M ED 19:06
DX: F41.9 Anxiety disorder, unspecified (principal)

== ENCOUNTER 2024-04-29 07:55 | Day surgery (SDC) | payer OTHER ==
[~2024-04-29] VITALS: Ht 154.9 cm; Wt 59.1 kg
[~2024-04-29 07:55] MED LIST changes: +MIDAZOLAM INJ 2MG/2ML VIAL As Ordered ONE; +ONDA-282 PO; -ONDA4TAB6 PO; +fentaNYL 100 MCG/2 ML INJECTION As Ordered ONE
[2024-04-29] MEDS: LR 1,000 ML IV SCH (08:40)
[2024-04-29] MEDS ORDERED: ONDANSETRON 4MG 2ML VIAL As Ordered ONE (08:55)
[2024-04-29] MEDS ORDERED: ePHEDrine SULFATE 25 MG/5 ML(5MG/ML) SYRINGE As Ordered ONE (08:56)
[2024-04-29] MEDS ORDERED: ACETAMINOPHEN 1000MG 100ML IV BAG As Ordered ONE (08:56)
[2024-04-29] MEDS ORDERED: KETOROLAC 60MG 2ML VIAL As Ordered ONE (08:56)
[2024-04-29] MEDS ORDERED: propofoL 200 MG/20 ML VIAL As Ordered ONE (08:57)
[2024-04-29] MEDS ORDERED: LIDOCAINE 2% 100MG/5ML SDV (FOR ANES.) As Ordered ONE (08:57)
[2024-04-29] MEDS ORDERED: fentaNYL 100 MCG/2 ML INJECTION IV PRN (09:30)
[2024-04-29] MEDS ORDERED: oxyCODONE 5MG TAB PO PRN (09:30)
[2024-04-29] MEDS ORDERED: LR 1,000 ML IV SCH (09:30)
[2024-04-29] MEDS ORDERED: ONDANSETRON 4MG 2ML VIAL IV PRN (09:30)
[2024-04-29] MEDS ORDERED: HYDROMORPHONE HCL 0.5 MG/ 0.5 ML SYRINGE IV PRN (09:30)
[2024-04-29 10:57] VITALS: BP 115/71; TEMP 97.9; O2SAT 99
== END 2024-04-29 11:21 | disposition home or self-care (01) ==
LOC: M SDC 07:55
PROVIDERS: ATTEND Orthopaedic Surgery Hand Surgery
DX: G56.01 Carpal tunnel syndrome, right upper limb (principal)
CPT/HCPCS: 29848; 81025; J0131; J0665; J1100; J2250; J2405; J3010

== ENCOUNTER → 2024-11-10 | Outpatient (REF) | payer OTHER ==
[~2024-11-10] MED LIST changes: -MIDAZOLAM INJ 2MG/2ML VIAL As Ordered ONE; -fentaNYL 100 MCG/2 ML INJECTION As Ordered ONE
[2024-11-10 14:50] LABS: BASO % 0.7 % (0.0-1.0); EOS # 0.2 10^3/uL (0.0-0.5); EOS % 4.3 % (0.0-3.0); HEMATOCRIT 40.7 % (36.0-47.0); HEMOGLOBIN 13.5 g/dl (12.0-15.5); LYMPH # 1.3 10^3/uL (1.5-5.0); LYMPH % 23.4 % (24.0-44.0); MEAN CORPUSCULAR HEMOGLOBIN 31.7 pg (27.0-33.0); MEAN CORPUSCULAR HGB CONC 33.2 g/dl (32.0-36.5); MEAN CORPUSCULAR VOLUME 95.5 fl (80.0-96.0); MONO # 0.6 10^3/uL (0.0-0.8); MONO % 9.8 % (2.0-8.0); NEUTROPHILS # 3.5 10^3/uL (1.5-8.5); NEUTROPHILS % 61.6 % (36.0-66.0); PLATELET COUNT, AUTOMATED 178 10^3/uL (150-450); RED BLOOD COUNT 4.26 10^6/uL (4.00-5.40); WHITE BLOOD COUNT 5.6 10^3/uL (4.0-10.0)
[2024-11-10 14:58] LABS: ALBUMIN 3.7 G/DL (3.2-5.2); ALKALINE PHOSPHATASE 55 U/L (35-104); ALT/SGPT 13 U/L (7.0-40); AST/SGOT 14 U/L (<34); BILIRUBIN,TOTAL 0.5 MG/DL (0.3-1.2); BLOOD UREA NITROGEN 11 MG/DL (9-23); CALCIUM LEVEL 9.2 MG/DL (8.5-10.1); CARBON DIOXIDE LEVEL 27 MMOL/L (20-31); CHLORIDE LEVEL 107 MMOL/L (98-107); CHOLESTEROL LEVEL 156 MG/DL (<200); CHOLESTEROL RISK RATIO 2.78 (<5); CREATININE FOR GFR 0.87 MG/DL (0.55-1.30); GLOMERULAR FILTRATION RATE > 60.0 (>60); GLUCOSE, FASTING 82 MG/DL (60-100); LDL CHOLESTEROL 85.6 MG/DL (<100); POTASSIUM SERUM 4.5 MMOL/L (3.5-5.1); SODIUM LEVEL 141 MMOL/L (136-145); TOTAL 25(OH) VITAMIN D 26.9 NG/ML (20.0-100.0); TOTAL PROTEIN 6.9 G/DL (5.7-8.2); TRIGLYCERIDES LEVEL 72 MG/DL (<150)
[2024-11-10 14:59] LABS: THYROID STIMULATING HORMONE 0.672 uIU/ML (0.55-4.78)
[2024-11-10 15:31] LABS: HEPATITIS C VIRUS ABY INDEX 0.13 INDEX (<0.8)
[2024-11-10 16:04] LABS: HEMOGLOBIN A1c 4.9 % (4.0-6.0)
== END ==
LOC: M LAB REF 12:44
PROVIDERS: ATTEND Nurse Practitioner Family
DX: E66.3 Overweight (principal); E55.9 Vitamin D deficiency, unspecified; R53.83 Other fatigue; Z11.9 Encounter for screening for infectious and parasitic diseases, unspecified

== ENCOUNTER → 2025-08-18 | Outpatient (CLI) | payer OTHER ==
[~2025-08-18] MED LIST changes: +SERT20CO4
== END ==
LOC: M WHC 13:55
PROVIDERS: ATTEND Physician Assistant
DX: N89.8 Other specified noninflammatory disorders of vagina (principal)